=== PATIENT | female | born 1980 | race American Indian/Alaskan Native ===

== ENCOUNTER 2017-06-27 18:47 | Emergency (ER) | payer BC ==
[2017-06-27] MEDS ORDERED: TYLENOL ONE (20:14)
[2017-06-27] MEDS ORDERED: TYLENOL PO ONE (20:24)
[2017-06-28] MEDS ORDERED: MOTRIN PO ONE (00:16)
--- NOTE | 2017-06-28 00:16 | Emergency Department Report ---
HPI - General Chief Complaint: Fever Time Seen by Provider: 06/27/17 23:02 - HPI HPI: ED course: Patient reports that she has fever, sore throat and increased pain and cough in with weakness over the last couple days. She says she was diagnosed with influenza and strep recently which she took, flu which she did not finish and was placed on Augmentin. Patient denies any shortness of breath or chest pain but reports sore throat that looks like she has some bumps at the back of her throat and sore throat is 6 out of 10 and worse with coughing. She denies any chest pain. Reports generalized weakness. Last menstrual period was 06/19/2017. Patient does have a history of asthma and she takes inhaler as needed. [id number] medication did not completely relieve her pain. Pain is worse with coughing and better when not coughing or eating. ED Past Medical Hx - Past Medical History Previous Medical History?: Yes Hx Asthma: Yes - Surgical History Past Surgical History?: Yes Additional Surgical History: eye, gastric sleeve - Family History Family history: no significant - Social History Smoking Status: Never Smoker Substance Use Type: Alcohol - Medications Home Medications: Home Medications Medication Instructions Recorded Confirmed Last Taken Type Cetirizine HCl [ZyrTEC] 10 mg PO QAM 14 Days #14 capsule 06/28/17 Unknown Rx Fluticasone [Flonase] 1 spray NS QDAY 14 Days #1 bottle 06/28/17 Unknown Rx Ibuprofen [Motrin] 600 mg PO Q6H PRN #16 tablet 06/28/17 Unknown Rx Oseltamivir [Tamiflu] 75 mg PO BID 5 Days #10 cap 06/28/17 Unknown Rx Promethazine [Phenergan TAB] 25 mg PO Q6HR PRN #16 tab 06/28/17 Unknown Rx guaiFENesin/CODEINE [Robitussin AC] 5 ml PO Q8H PRN #100 ml 06/28/17 Unknown Rx ED Review of Systems ROS: Stated complaint: FEVER Other details as noted in HPI Comment: All other systems reviewed and negative Constitutional: chills, fever, weakness Eyes: denies: eye discharge ENT: throat pain, congestion. denies: ear pain Respiratory: cough. denies: orthopnea, shortness of breath, stridor, wheezing Cardiovascular: denies: chest pain, palpitations, dyspnea on exertion, edema, syncope, paroxysmal nocturnal dyspnea Gastrointestinal: denies: abdominal pain, nausea, vomiting, diarrhea Genitourinary: denies: dysuria, hematuria Musculoskeletal: myalgia. denies: back pain, joint swelling, arthralgia Skin: denies: rash Neurological: denies: headache, weakness, numbness, paresthesias, confusion, abnormal gait, vertigo Physical Exam - Physical Exam Vital Signs: Vital Signs 06/27/17 06/27/17 06/27/17 20:09 22:19 23:19 Temperature 102.8 F H 100.3 F H 100.1 F H Pulse Rate 102 H 86 Respiratory 18 14 Rate Blood Pressure 148/74 Blood Pressure 125/84 [Right] O2 Sat by Pulse 98 98 Oximetry Vital Signs 06/27/17 06/27/17 06/27/17 20:09 22:19 23:19 Temperature 102.8 F H 100.3 F H 100.1 F H Pulse Rate 102 H 86 Respiratory 18 14 Rate Blood Pressure 148/74 Blood Pressure 125/84 [Right] O2 Sat by Pulse 98 98 Oximetry 06/28/17 00:40 Temperature 99.7 F H Pulse Rate 81 Respiratory 16 Rate Blood Pressure Blood Pressure 144/84 [Right] O2 Sat by Pulse 100 Oximetry General: This is a 37-year-old female well-nourished well-developed in no acute distress but appears mildly ill Physical Exam: Head: Normocephalic, atraumatic, no abrasion, no bruising and no contusion. Eyes: Biateral pupils equal and reactive to light, bilateral EOM intact.. Bilateral conjunctival and sclera without injection, normal accommodation. Mouth: Moist, mild pharyngeal erythema with some oral exanthema .no peritonsillar abscesses. Uvula is midline and oral airways patent. Ears: TM congested without erythema. Bilateral EAC without any redness swelling or drainage. No mastoid bone tenderness Nose: Bilateral nasal turbinates congested with erythema and clear drainage. Maxillary and frontal sinuses non-tender to palpate. Neck: Supple, No Cervical adenopathy, full range of motion and no C-spine tenderness. No swelling or tracheal deviation normal reflexes Cardiovascular: S1, S2. Mild tachycardia at 102, Regular rhythm. No murmur. Capillary refill is less then 3 seconds. Lungs: Clear to auscultate bilaterally. No rhonchi, wheezes or rales. No chest wall tenderness. No chest contusion. No bruising to chest. Dry cough MSK: Strength 5/5 in all extremities. No joint deformity or crepitus. Normal inspection. Full range of motion to all extremities. No laceration, abrasion or ecchymotic area noted. Abdomen: Non-tender to palpate in all quadrants, no guarding or rebound tenderness, positive bowel sounds in all quadrants. No CVA tenderness. No hernia, bruit or mass. No rigidity or distention. Extremities: No clubbing, cyanosis or edema. +2 pulses. No neurovascular compromise Skin: Clean, dry and intact. No rash or lesions. Mini Neurological: GCS at 15, Pt is alert and oriented 3 speech is clear Normal gait. Psych: Normal mood and behavior ED Course Vital Signs 06/27/17 06/27/17 06/27/17 20:09 22:19 23:19 Temperature 102.8 F H 100.3 F H 100.1 F H Pulse Rate 102 H 86 Respiratory 18 14 Rate Blood Pressure 148/74 Blood Pressure 125/84 [Right] O2 Sat by Pulse 98 98 Oximetry Vital Signs 06/27/17 06/27/17 06/27/17 20:09 22:19 23:19 Temperature 102.8 F H 100.3 F H 100.1 F H Pulse Rate 102 H 86 Respiratory 18 14 Rate Blood Pressure 148/74 Blood Pressure 125/84 [Right] O2 Sat by Pulse 98 98 Oximetry 06/28/17 00:40 Temperature 99.7 F H Pulse Rate 81 Respiratory 16 Rate Blood Pressure Blood Pressure 144/84 [Right] O2 Sat by Pulse 100 Oximetry - Reevaluation(s) Reevaluation #1: 06/28/17 00:50 Patient given Tylenol 650 mg in triage area for temperature of 102.5 which her temperature is gone down. She is given an additional Motrin 800 mg, influenza and strep done and sent. Chest x-ray pending. Oral agitation started and patient tolerated well. Reevaluation #2: 06/28/17 01:51 Patient's chest x-ray with normal exam. No acute cardiopulmonary findings, influenza A- and influenza B-positive. Strep test is negative. Patient with low-grade temperature and other vital signs are normal. She is able to tolerate oral liquids without any difficulties. Patient drank 3 cups of cranberry juice without any difficulties. ED Medical Decision Making - Lab Data Influenza A Influenza B-positive Rapid strep negative and culture pending - Radiology Data Radiology results: report reviewed Chest x-ray revealed no acute cardiopulmonary findings - Medical Decision Making ED course: Patient here report cough, sore throat and fever that's been ongoing over the last couple days. She says she was also influenza a and strep and was treated and got better. Patient she has a history of asthma but does not have any wheezing or difficulty breathing. Physical finding for erythematous throat with oral exanthema, influenza A- influenza B is positive. Rapid strep test is negative and culture pending. Chest x-ray revealed no acute cardiopulmonary findings. Patient with influenza A with acute upper respiratory with cough and congestion, fever and sore throat. Patient able to tolerate oral liquids in the emergency room without any nausea or vomiting. She received Tylenol 650 mg in triage for fever and sore throat and additional Motrin 800 mg by mouth. Her vital signs are stable with low grade temp at present. I discussed results of fluid tested patient along with diagnosis and treatment plan. I discussed with her that she needs to follow up with her primary care physician in 2 days and to rest for 72 hours. Patient discharged home with prescription for Zyrtec, Flonase, Motrin, Tamiflu, Phenergan and guaifenesin with codeine. Critical care attestation.: If time is entered above; I have spent that time in minutes in the direct care of this critically ill patient, excluding procedure time. ED Disposition Clinical Impression: Influenza A, Upper respiratory infection with cough and congestion, Fever in adult, Malaise and fatigue Acute pharyngitis Qualifiers: Pharyngitis/tonsillitis etiology: unspecified etiology Qualified Code(s): J02.9 - Acute pharyngitis, unspecified Disposition: DC-01 TO HOME OR SELFCARE Is pt being admited?: No Does the pt Need Aspirin: No Condition: Stable Instructions: Pharyngitis (ED), Influenza (ED), Acute Cough (ED), Weakness (ED) , Fever in Adults (ED) Additional Instructions: Please increase her fluid intake to 2-3 L of water and/or cranberry juice, orange juice daily. Take Tamiflu for influenza a Take Phenergan for nausea. Take guaifenesin with codeine for cough, These medications can cause drowsiness. Do not drive or operate heavy machinery while taking these medications Follow-up via primary care physician in 2 days Rest for 72 hours Take Zyrtec and Flonase for congestion Take Motrin for fever and/or pain. Prescriptions: Cetirizine HCl [ZyrTEC] 10 mg PO QAM 14 Days #14 capsule Fluticasone [Flonase] 1 spray NS QDAY 14 Days #1 bottle guaiFENesin/CODEINE [Robitussin AC] 5 ml PO Q8H PRN #100 ml PRN Reason: Cough Ibuprofen [Motrin] 600 mg PO Q6H PRN #16 tablet PRN Reason: fever and/or pain Oseltamivir [Tamiflu] 75 mg PO BID 5 Days #10 cap Promethazine [Phenergan TAB] 25 mg PO Q6HR PRN #16 tab PRN Reason: Nausea Referrals: FEDERICO DILLON MD [Primary Care Provider] - 06/30/17 Forms: Work/School Release Form(ED)
--- NOTE | 2017-06-28 00:45 | XRay Report ---
FINAL REPORT EXAM: XR CHEST ROUTINE 2V HISTORY: cough, fever TECHNIQUE: PA and lateral views of the chest were submitted. FINDINGS: Heart size and mediastinum appear normal. The lungs are clear. Pleural fluid is not seen. The skeletal structures reveal a levoscoliosis of the upper thoracic spine. IMPRESSION: No active chest disease.
[2017-06-28 00:53] VITALS: BP 144/84
== END 2017-06-28 02:15 | disposition home or self-care (01) ==
LOC: ED 18:47
DX: J11.1 Influenza due to unidentified influenza virus with other respiratory manifestations (principal); J06.9 Acute upper respiratory infection, unspecified; J02.9 Acute pharyngitis, unspecified
CPT/HCPCS: 71046; 87116; 87400; 87430; 99284